=== PATIENT | female | born 1985 | race Two or more races ===

== ENCOUNTER 2021-06-29 01:43 | Outpatient (CLI) | payer OTHER ==
[~2021-06-29 01:43] MED LIST: ANTICONCEPTIVO; PROTONIX40 MG PO
[2021-06-29] MEDS ORDERED: PRENATA CHEWAB1 EACH (04:38)
== END 2021-06-29 12:23 | disposition home or self-care (01) ==
LOC: OBS/DEL 01:43
PROVIDERS: ATTEND Obstetrics & Gynecology Maternal & Fetal Medicine
DX: O46.92 Antepartum hemorrhage, unspecified, second trimester (principal); Z3A.25 25 weeks gestation of pregnancy

== ENCOUNTER 2021-09-16 06:33 | Inpatient (IN) | payer OTHER ==
[~2021-09-16] VITALS: Ht 167.6 cm; Wt 104.3 kg
[~2021-09-16 06:33] MED LIST changes: +PRENATA CHEWAB1 EACH
[2021-09-16] MEDS ORDERED: PEPCID AC10 MG (07:18)
== END 2021-09-17 09:01 | disposition home or self-care (01) | DRG 833 ==
LOC: LDR 06:33
PROVIDERS: ADMIT Obstetrics & Gynecology; ATTEND Obstetrics & Gynecology
PROC: 4A1HXCZ Monitoring of Products of Conception, Cardiac Rate, External Approach (ICD-10-PCS; principal; 2021-09-16)
PROC: BY4CZZZ Ultrasonography of Second Trimester, Single Fetus (ICD-10-PCS; 2021-09-16)
PROC: BT43ZZZ Ultrasonography of Bilateral Kidneys (ICD-10-PCS; 2021-09-16)
PROC: BW40ZZZ Ultrasonography of Abdomen (ICD-10-PCS; 2021-09-16)
DX: O26.893 Other specified pregnancy related conditions, third trimester (principal); N20.0 Calculus of kidney; Z3A.35 35 weeks gestation of pregnancy; Z20.822 Contact with and (suspected) exposure to COVID-19

== ENCOUNTER 2021-10-10 13:01 | Outpatient (CLI) | payer OTHER ==
[~2021-10-10 13:01] MED LIST changes: +PEPCID AC10 MG
== END 2021-10-10 13:07 | disposition home or self-care (01) ==
LOC: NST 13:01
PROVIDERS: ATTEND Obstetrics & Gynecology Gynecology
DX: Z34.83 Encounter for supervision of other normal pregnancy, third trimester (principal)

== ENCOUNTER 2021-10-16 07:00 | Inpatient (IN) | payer OTHER ==
[~2021-10-16] VITALS: Ht 167.6 cm; Wt 108.9 kg
[2021-10-19] MEDS ORDERED: OXYC1TAB9 PO (10:25)
[2021-10-19] MEDS ORDERED: KETO10TA2 PO (10:26)
== END 2021-10-19 13:27 | disposition home or self-care (01) | DRG 788 ==
LOC: OB/GYN 07:00 → O/R 07:00 → OB/GYN 11:55 → LDR 17:48 → OB/GYN 10-19 13:27
PROVIDERS: ADMIT Obstetrics & Gynecology; ATTEND Obstetrics & Gynecology
PROC: 4A1HXCZ Monitoring of Products of Conception, Cardiac Rate, External Approach (ICD-10-PCS; 2021-10-16)
PROC: 10D00Z1 Extraction of Products of Conception, Low, Open Approach (ICD-10-PCS; principal; 2021-10-16 10:00)
DX: O36.63X0 Maternal care for excessive fetal growth, third trimester, not applicable or unspecified (principal); Z3A.39 39 weeks gestation of pregnancy; Z37.0 Single live birth; Z20.822 Contact with and (suspected) exposure to COVID-19

== ENCOUNTER 2022-04-02 07:20 | Outpatient (CLI) | payer OTHER ==
[~2022-04-02 07:20] MED LIST changes: +KETO10TA2 PO; +OXYC1TAB9 PO
== END 2022-04-02 07:32 | disposition home or self-care (01) ==
LOC: SONOGRAMA 07:20
PROVIDERS: ATTEND Urology
DX: N20.0 Calculus of kidney (principal)

== ENCOUNTER 2022-06-10 08:17 | Outpatient (CLI) | payer OTHER | END 2022-06-10 08:27 | disposition home or self-care (01) | LOC: RAD 08:17 | DX: M54.50 Low back pain, unspecified (principal) ==

== ENCOUNTER 2022-08-28 10:51 | Outpatient (CLI) | payer OTHER | END 2022-08-28 10:54 | disposition home or self-care (01) | LOC: MRI 10:51 | PROVIDERS: ATTEND Chiropractor | DX: M54.50 Low back pain, unspecified (principal) | CPT/HCPCS: 72148 ==

== ENCOUNTER 2023-01-20 15:08 | Outpatient (CLI) | payer OTHER | END 2023-01-20 15:25 | disposition home or self-care (01) | LOC: SONOGRAMA 15:08 | PROVIDERS: ATTEND Obstetrics & Gynecology | DX: N63.21 Unspecified lump in the left breast, upper outer quadrant (principal); N63.12 Unspecified lump in the right breast, upper inner quadrant ==

== ENCOUNTER 2023-10-28 08:48 | Outpatient (CLI) | payer OTHER | END 2023-10-28 09:43 | disposition home or self-care (01) | LOC: TOM 08:48 | PROVIDERS: ATTEND Obstetrics & Gynecology Maternal & Fetal Medicine | DX: R10.32 Left lower quadrant pain (principal); K57.92 Diverticulitis of intestine, part unspecified, without perforation or abscess without bleeding; N60.19 Diffuse cystic mastopathy of unspecified breast; N63.0 Unspecified lump in unspecified breast; N60.11 Diffuse cystic mastopathy of right breast ==

== ENCOUNTER 2024-03-09 07:04 | Day surgery (SDC) | payer OTHER ==
[2024-03-01 08:27] VITALS: BP 114/76
[2024-03-01 08:41] LABS: HEMATOCRIT 39.7 % (36.0-45.00); HEMOGLOBIN 13.7 g/dL (12.0-15.00); MEAN CELL VOLUME 90.3 fL (80.00-100.00); MEAN CORPUSCULAR HEMOGLOBIN 31.2 pg (27.00-32.0); MEAN CORPUSCULAR HGB CONC 34.6 g/dl (32.0-36.0); PLATELET COUNT 310 K/uL (150-450); RED CELL DISTRIBUTION WIDTH 12.6 % (11.5-14.5)
[2024-03-01 09:13] LABS: INR 0.97; PARTIAL THROMBOPLASTIN TIME 25.8 SECONDS (22.0-34.0); PROTHROMBIN TIME 10.6 SECONDS (9.0-11.5)
[2024-03-01 09:42] LABS: ALBUMIN 3.9 gm/dL (3.4-5.0); BILIRUBIN TOTAL 0.69 mg/dL (0.3-1.2); CALCIUM 9.1 mg/dL (8.5-10.1); CREATININE SERUM 0.65 mg/dL (0.55-1.02); GFR 102.01; GLOBULINA 3.5 G/DL (2.4-3.5); POTASSIUM 4.36 mEq/L (3.5-5.1); TOTAL PROTEIN 7.4 gm/dL (6.4-8.2)
[~2024-03-09] VITALS: Ht 165.1 cm; Wt 78.0 kg
[2024-03-09] MEDS ORDERED: SUGAMMADEX SODIUM 200 MG/2 ML VIAL IV ONE (12:24)
[2024-03-09] MEDS ORDERED: MORPHINE SULFATE 4 MG/ML CARTRIDGE IV PRN (14:00)
[2024-03-09] MEDS ORDERED: PROMETHAZINE HCL 50 MG/ML AMPUL IM ONE (14:00)
[2024-03-09] MEDS ORDERED: MORPHINE SULFATE 4 MG/ML VIAL IV ONE (14:15)
== END 2024-03-09 16:45 | disposition home or self-care (01) ==
LOC: CIR.AMB 07:04 → O/R 07:04 → SURH 07:04 → EDSTATUS 07:15 → CIR.AMB 07:15 → SURH 11:00 → O/R 16:45 → CIR.AMB 16:45
PROVIDERS: ATTEND Obstetrics & Gynecology
DX: C56.1 Malignant neoplasm of right ovary (principal); Z30.2 Encounter for sterilization; D39.11 Neoplasm of uncertain behavior of right ovary

== ENCOUNTER 2024-03-20 15:51 | Emergency (ER) | payer OTHER ==
[~2024-03-20] VITALS: Ht 165.1 cm; Wt 78.5 kg
[2024-03-20] MEDS ORDERED: KETOROLAC TROMETHAMINE 30 MG VIAL IM STA (16:39)
[2024-03-20] MEDS ORDERED: DEXAMETHASONE SODIUM PHOSPHATE 4 MG/ML VIAL IM STA (16:40)
[2024-03-20] MEDS ORDERED: DEXAMETHASONE SODIUM PHOSPHATE 4 MG/ML VIAL ONE (16:46)
[2024-03-20] MEDS ORDERED: KETOROLAC TROMETHAMINE 30 MG VIAL ONE (16:46)
== END 2024-03-20 19:08 | disposition home or self-care (01) ==
LOC: ER 15:53
DX: T17.900A Unspecified foreign body in respiratory tract, part unspecified causing asphyxiation, initial encounter (principal); X58.XXXA Exposure to other specified factors, initial encounter; Y92.89 Other specified places as the place of occurrence of the external cause

== ENCOUNTER 2024-10-23 13:28 | Emergency (ER) | payer OTHER ==
[~2024-10-23] VITALS: Ht 165.1 cm; Wt 82.6 kg
[2024-10-23 16:33] LABS: BASO % 0.4 % (0.1-1.2); EOS # 0.12 (0.04-0.54); EOS % 1.2 % (0.7-7.0); LYMPH # 3.34 (1.18-3.74); LYMPH % 32.3 % (19.3-53.1); MEAN PLATELET VOLUME 9.00 fl (9.4-12.4); MONO # 0.62 (0.24-0.82); MONO % 6.0 % (4.7-12.5); NEUT # 6.19 (1.56-6.13); NEUT % 59.9 % (34.0-71.1); RED CELL DISTRIBUTION WIDTH 11.9 % (11.6-14.4)
[2024-10-23 17:00] LABS: URINE APPEARANCE Clear; URINE BILIRRUBIN Negative (NEGATIVE); URINE BLOOD Negative; URINE COLOR Yellow; URINE GLUCOSE Negative (NEGATIVE); URINE KETONE Negative (NEGATIVE); URINE LEUKOCYTE Negative; URINE NITRATE Negative; URINE PROTEIN Negative (NEGATIVE); URINE UROBILINOGEN 0.2 E.U./dl
[2024-10-23 17:03] LABS: BUN CREA RATIO 21.0 (7.0-25.0); CREATININE SERUM 0.66 mg/dL (0.55-1.02); GFR 99.7; GLUCOSE FASTING 76.0 mg/dL (65-100); OSMOLALITY SERUM 280.0 MOSM/KG (275-295)
[2024-10-23 17:04] LABS: URINE BACTERIA 1337.7 uL (0.0-1933); URINE EPITHELIAL CELLS 11.3 uL (0.0-38.8); URINE RBC 14.9 uL (0.0-20.8); URINE WBC 10.1 uL (0.0-23.2)
[2024-10-23 17:07] LABS: URINE CAST 0.14 uL (0.0-1.40)
[2024-10-23] MEDS ORDERED: PYRIDIUM200 MG PO (18:18)
== END 2024-10-23 18:48 | disposition home or self-care (01) ==
LOC: ER 13:28
PROVIDERS: General Practice
DX: R35.0 Frequency of micturition (principal); R10.2 Pelvic and perineal pain